=== PATIENT | male | born 1980 | race Two or more races ===

== ENCOUNTER 2017-06-04 21:24 | Emergency (ER) | payer MEDICAID | END 2017-06-05 05:41 | disposition left against medical advice (07) | LOC: ER 21:24 | DX: M54.5 Low back pain (principal); Z53.21 Procedure and treatment not carried out due to patient leaving prior to being seen by health care provider ==

== ENCOUNTER 2017-06-05 07:26 | Emergency (ER) | payer MEDICAID ==
[~2017-06-05] VITALS: Ht 182.9 cm; Wt 102.5 kg
[2017-06-05] MEDS ORDERED: KETOROLAC TROMETH 60MG/2ML VIAL IM ONE (08:30)
[2017-06-05 08:51] VITALS: BP 132/92
== END 2017-06-05 08:52 | disposition home or self-care (01) ==
LOC: ER 07:31
DX: M54.41 Lumbago with sciatica, right side (principal); D17.1 Benign lipomatous neoplasm of skin and subcutaneous tissue of trunk
CPT/HCPCS: 96372; 99283; J1885

== ENCOUNTER 2018-04-15 14:44 | Emergency (ER) | payer MEDICAID ==
[~2018-04-15] VITALS: Ht 177.8 cm; Wt 104.3 kg
[2018-04-15 14:59] VITALS: BP 163/101
[2018-04-15] MEDS ORDERED: KETOROLAC TROMETH 60MG/2ML VIAL IM ONE (18:00)
== END 2018-04-15 18:38 | disposition home or self-care (01) ==
LOC: ER 14:44
DX: S73.101A Unspecified sprain of right hip, initial encounter (principal); M16.11 Unilateral primary osteoarthritis, right hip; N49.2 Inflammatory disorders of scrotum; I10 Essential (primary) hypertension; W11.XXXA Fall on and from ladder, initial encounter; Y93.89 Activity, other specified; Y99.8 Other external cause status; Y92.89 Other specified places as the place of occurrence of the external cause
CPT/HCPCS: 73502; 73700; 76870; 96372; 99284; J1885

== ENCOUNTER 2019-02-20 05:43 | Day surgery (SDC) | payer MEDICAID ==
[2019-02-16 15:06] LABS: Basophils # (auto) 0.2 uL; Eosinophils # (auto) 0.2 uL; Eosinophils % (auto) 2.2 % (0.0-7.0); Hematocrit 45.9 % (41.0-53.0); Hemoglobin 15.6 g/dL (13.5-17.5); Lymphocytes # (auto) 2.2 uL; Lymphocytes % (auto) 26.4 % (10.0-50.0); Mean Corpuscular Hemoglobin 27.3 pg (28.0-32.0); Mean Corpuscular Volume 80.2 fL (80.0-100.0); Monocytes # (auto) 0.7 uL; Monocytes % (auto) 8.4 % (0.0-12.0); Neutrophils # (auto) 5.1 uL; Nucleated Red Blood Cells % 0.2 %; Platelet Count (auto) 251 10^3/uL (140-450); Red Blood Cells 5.72 10^6/uL (4.5-5.90); Red Cell Distribution Width 13.6 % (11.8-14.3); White Blood Cell 8.4 10^3/uL (4.4-10.8)
[2019-02-16 15:30] LABS: Calcium 9.2 mg/dL (8.5-10.1); INR < 0.93 (0.9-1.15); Partial Thromboplastin Time 27.6 sec (23.64-32.05)
[2019-02-16 15:33] LABS: BUN/Creatinine Ratio 13.5
[2019-02-16 15:36] LABS: Bilirubin, Total 0.8 mg/dL (0.2-1.0); Total Protein 8.4 g/dL (6.4-8.2)
[2019-02-16 15:45] LABS: Urine Bacteria NONE SEEN /hpf (None Seen); Urine Blood Negative /uL (Negative); Urine Mucus FEW (None Seen); Urine Specific Gravity 1.016 (1.001-1.035); Urine WBC <1 /hpf (0 - 3)
[~2019-02-20] VITALS: Ht 182.9 cm; Wt 113.4 kg
[~2019-02-20 05:43] MED LIST: DULO30CA PO; ESCI20TA PO; GABA100C9 PO; LISI-646 PO; NAP500T PO; TRAM50TA2 PO
[2019-02-20] MEDS ORDERED: ceFAZolin 1GM/50ML 50 ML IV ONE (06:29)
[2019-02-20] MEDS ORDERED: LIDOCAINE W/ EPINEPHRINE 1% 20ML VIAL ONE (07:19)
[2019-02-20] MEDS ORDERED: KETOROLAC TROMETH 30 MG/ML 1ML VIAL IV ONE ×2 (07:25→07:45)
[2019-02-20] MEDS ORDERED: fentaNYL CITRATE 100 MCG/2 ML VL ONE (07:38)
[2019-02-20] MEDS ORDERED: MIDAZOLAM HCL 1MG/1ML-2 ML VIAL ONE (07:38)
[2019-02-20] MEDS ORDERED: MEPERIDINE HCL (25 MG/ML) 1ML VIAL ONE (07:38)
[2019-02-20] MEDS ORDERED: HYDROmorphone HCL 2 MG/ML VL IV PRN (07:45)
[2019-02-20] MEDS ORDERED: MORPHINE SULFATE 4 MG/ML SYR/VIAL IV PRN (07:45)
[2019-02-20] MEDS ORDERED: ePHEDrine SULFATE 50 MG/ML AMP IV PRN (07:45)
[2019-02-20] MEDS ORDERED: LABETALOL HCL 5 MG/ML 4ML SYRINGE IV PRN (07:45)
[2019-02-20] MEDS ORDERED: ONDANSETRON HCL 4 MG/2 ML VIAL IV PRN (07:45)
[2019-02-20] MEDS ORDERED: MIDAZOLAM HCL 1MG/1ML-2 ML VIAL IV PRN (07:45)
[2019-02-20] MEDS ORDERED: METOCLOPRAMIDE HCL 5MG/ml INJ 2ml VIAL IV PRN (07:45)
[2019-02-20] MEDS ORDERED: PROPOFOL 10 MG/ML 20 ML IV ONE (08:04)
[2019-02-20] MEDS ORDERED: DexAMETHasone SOD PHOS 10MG/1ML VIAL INJ ONE (08:04)
[2019-02-20 09:49] VITALS: BP 134/90
== END 2019-02-20 10:13 | disposition home or self-care (01) ==
LOC: SUR 05:43
PROVIDERS: ATTEND Urology
DX: N50.89 Other specified disorders of the male genital organs (principal); M16.0 Bilateral primary osteoarthritis of hip; F32.9 Major depressive disorder, single episode, unspecified; I10 Essential (primary) hypertension; E66.9 Obesity, unspecified; Z98.890 Other specified postprocedural states; Z79.899 Other long term (current) drug therapy; Z87.891 Personal history of nicotine dependence; Z68.33 Body mass index [BMI] 33.0-33.9, adult
CPT/HCPCS: 36415; 54700; 80053; 81001; 85025; 85610; 85730; 87070; 87075; 87077; 87186; 87205; 93005; J0690; J1100; J1885; J2175; J2250; J2704; J3010; J7030

== ENCOUNTER 2019-05-21 19:20 | Emergency (ER) | payer MEDICAID ==
[~2019-05-21] VITALS: Ht 185.4 cm; Wt 104.3 kg
[2019-05-21 19:39] VITALS: BP 104/53
[2019-05-21] MEDS ORDERED: HYDROcodone-ACET 10/325MG TAB PO ONE (23:15)
[2019-05-21] MEDS ORDERED: ONDANSETRON ODT 4 MG TAB PO ONE (23:15)
== END 2019-05-21 23:23 | disposition home or self-care (01) ==
LOC: EDBD 19:20 → ER 19:27
DX: S39.012A Strain of muscle, fascia and tendon of lower back, initial encounter (principal); S16.1XXA Strain of muscle, fascia and tendon at neck level, initial encounter; S70.01XA Contusion of right hip, initial encounter; F41.9 Anxiety disorder, unspecified; I10 Essential (primary) hypertension; Z79.899 Other long term (current) drug therapy; X50.0XXA Overexertion from strenuous movement or load, initial encounter; Y93.89 Activity, other specified; Y92.512 Supermarket, store or market as the place of occurrence of the external cause; Y99.8 Other external cause status
CPT/HCPCS: 70450; 72125; 72131; 72192; 99284; Q0162